=== PATIENT | female | born 1965 | race Caucasian/White ===

== ENCOUNTER 2016-10-05 16:29 | Emergency (ER) | payer MEDICARE, MEDICAID ==
--- NOTE | 2016-10-05 16:48 | EDM.PDOC ---
ED HPI GI/ABDOMINAL - General Chief Complaint: Abdominal Pain Stated Complaint: pelvic pain pressure since last night ? UTI sharp crampy pain intermitting 20-30 mins at time 04/05 Time Seen by Provider: 10/05/16 16:35 Source of Information: Reports: Patient History Limitations: Reports: No limitations - History of Present Illness INITIAL COMMENTS - FREE TEXT/NARRATIVE: pt denies any back pain fever NV pos normal BM today this am neg blood mucus no hematuria always has frequncy neg dysuria ? pressure no chills states has drank lot cokes today ate a chicken cordon blue sandwich today no past adb issues past surg HX gastric bypass mattmy reema Symptom Onset Date: 10/04/16 Symptom Onset Time: 23:55 Location: suprapubic Quality: Reports: ache, cramping, stabbing Severity: moderate Improves with: Denies: defecating, urinating, vomiting, palpation, lying down, sitting up Worsens with: Denies: urinating, vomiting, palpation, lying down, sitting up Associated Symptoms (-Female): Reports: denies other symptoms - Related Data Allergies/ADRs: Allergies Allergy/AdvReac Type Severity Reaction Status Date / Time Penicillins Allergy Rash Verified 10/05/16 16:51 Sulfa (Sulfonamide Allergy Rash Verified 10/05/16 16:51 Antibiotics) Home Meds: Home Meds Dicyclomine [Bentyl] 10 mg PO Q8HR #16 cap 10/05/16 [Rx] Past Medical History Gastrointestinal History: Denies: Bowel obstruction, Chronic constipation, Diverticulosis, GI bleed, Inflammatory bowel disease Genitourinary History: Reports: Other (see below) (uti last one maybe yrs ago). Denies: Pyelonephritis, Retention, urinary, Urinary incontinence, UTI, recurrent [employer] History: Denies: Dysfunctional uterine bleeding, Endometrial ablation, Endometriosis Neurological History: Reports: Seizure Hematologic History: Reports: None Immunologic History: Reports: None - Past Surgical History GI Surgical History: Reports: Bariatric procedure Social & Family History - Tobacco Use Smoking Status *Q: Current Every Day Smoker Years of Tobacco use: 10 Packs/Tins Daily: 0.2 - Recreational Drug Use Recreational Drug Use: No ED ROS GENERAL - Review of Systems Review Of Systems: See Below Constitutional: Denies: fever, chills, malaise, weakness, fatigue, night sweats HEENT: Reports: No symptoms Respiratory: Reports: no symptoms Cardiovascular: Reports: No symptoms Endocrine: Reports: no symptoms GI/Abdominal: Reports: Abdominal pain. Denies: Bloody stool, Constipation, Diarrhea, Decreased appetite, Distension, Flatus, Hematemesis, Hematochezia, Nausea, Vomiting : Reports: frequency. Denies: discharge, dysuria, flank pain, hematuria, incontinence, pain, urgency, urinary retention Musculoskeletal: Reports: no symptoms Skin: Reports: no symptoms Neurological: Reports: no symptoms Hematologic/Lymphatic: Reports: no symptoms ED EXAM, GI/ABD - Physical Exam Exam: See Below Text/Narrative:: normal gait pt laughing when setting down for exam Exam Limited By: No limitations General Appearance: alert, WD/WN, no apparent distress Eyes: bilateral: normal appearance Throat/Mouth: Normal gums, Normal oropharynx, Other (mmm) Neck: normal inspection, supple, non-tender, full range of motion. No: lymphadenopathy (L) Respiratory/Chest: no respiratory distress, lungs clear, normal breath sounds Cardiovascular: regular rate, rhythm, no edema, no gallop, no JVD, no murmur. No: tachycardia GI/Abdominal: normal bowel sounds, soft, non tender, no organomegaly, no distention. No: hypoactive bowel sounds, hyperactive bowel sounds, absent bowel sounds, tenderness, distention, guarding, rebound, rigidity Back Exam: normal inspection, full range of motion. No: CVA tenderness (L), CVA tenderness (R) Neurological: alert, oriented, CN II-XII intact, normal gait Psychiatric: normal affect Skin Exam: Warm, Dry, Intact, Normal color, No rash Lymphatic: no adenopathy Course - Vital Signs Text/Narrative:: ua ordered pt states can get f/u apt with pcp recheck pt lying on bed NAD UA neg will tx with bentyl 10 mg po q 8 hrs x 3days and have pt f/u pcp pt walking up down [place] laughing with Last Recorded V/S: Last Vital Signs Temp 36.8 C 10/05/16 16:35 Pulse 85 10/05/16 16:35 Resp 20 10/05/16 16:35 BP 129/84 10/05/16 16:35 Pulse Ox - Orders/Labs/Meds Labs: Laboratory Tests 10/05/16 Range/Units 16:51 Urine Color Yellow (YELLOW) Urine Appearance Slightly cloudy H (CLEAR) Urine pH 7.0 (5.0-8.0) Ur Specific [place] >=1.030 Urine Protein Negative (NEGATIVE) mg/dL Urine Glucose (UA) Negative (NEGATIVE) mg/dL Urine Ketones Negative (NEGATIVE) mg/dL Urine Occult Blood Negative (NEGATIVE) Urine Nitrite Negative (NEGATIVE) Urine Bilirubin Negative (NEGATIVE) Urine Urobilinogen 2.0 H (0.2) EU/dL Ur Leukocyte Esterase Negative (NEGATIVE) Urine RBC 0-5 (NOT SEEN) /HPF Urine WBC 0-5 (NOT SEEN) /HPF Ur Squamous Epith Cells Few H (NEGATIVE) /HPF Urine Bacteria Rare (NEGATIVE) /HPF Urine Mucus Few H (NEGATIVE) /LPF Departure - Departure Time of Disposition: 17:10 Disposition: Home, Self-Care 01 Condition: good Clinical Impression: Suprapubic abdominal pain Prescriptions: Dicyclomine [Bentyl] 10 mg PO Q8HR #16 cap Referrals: Pham Chatman PA-C [Primary Care Provider] - Forms: ED Department Discharge Additional Instructions: return to ER if anything changes or gets worse any nausea vomiting painful bowel movement or pain changes or gets worse follow up with your primary provider in the next 48-72 hours drink lots of water - Problem List & Annotations (1) Suprapubic abdominal pain SNOMED Code(s): 652162829 Code(s): R10.2 - PELVIC AND PERINEAL PAIN Status: Acute
[2016-10-05 16:57] VITALS: BP 129/84
[2016-10-05 16:58] LABS: APPEARANCE,URINE SLIGHTLY CLOUDY (CLEAR); BILIRUBIN,URINE NEGATIVE (NEGATIVE); GLUCOSE,URINE NEGATIVE (NEGATIVE); KETONES,URINE NEGATIVE (NEGATIVE); LEUKOCYTE ESTERASE,URINE NEGATIVE (NEGATIVE); NITRITE,URINE NEGATIVE (NEGATIVE); OCCULT BLOOD,URINE NEGATIVE (NEGATIVE); PROTEIN,URINE NEGATIVE (NEGATIVE)
[2016-10-05 17:05] LABS: BACTERIA,URINE RARE /HPF (NEGATIVE); MUCUS,URINE FEW /LPF (NEGATIVE); RBC,URINE 0-5 /HPF (NOT SEEN); WBC,URINE 0-5 /HPF (NOT SEEN)
== END 2016-10-05 17:30 | disposition home or self-care (01) ==
LOC: VM.ED 16:29
DX: R10.2 Pelvic and perineal pain (principal); F17.210 Nicotine dependence, cigarettes, uncomplicated; Z88.0 Allergy status to penicillin; Z88.2 Allergy status to sulfonamides
CPT/HCPCS: 81001; 99284